=== PATIENT | male | born 1950 | race Caucasian/White ===

== ENCOUNTER 2021-06-15 18:09 | Emergency (ER) | payer OTHER ==
[2021-06-15 21:18] LABS: Urine Blood 3+ (Negative); Urine Glucose Negative (Negative); Urine Protein 3+ (Negative); Urine Specific Gravity 1.025 (1.005-1.030)
[2021-06-15 21:20] LABS: Absolute Lymphocytes (CBC) 0.8 K/uL (0.7-4.9); Hematocrit 37.2 % (39.6-49.0); Lymphocytes % 4.7 % (15.3-44.8); MPV 7.3 fL (7.6-11.3); RBC Red Blood Cell Count 4.25 M/uL (4.33-5.43)
[2021-06-15 21:37] LABS: Albumin 3.8 g/dL (3.4-5.0); Bilirubin Direct 0.1 mg/dL (0-0.2); Bilirubin Total 0.4 mg/dL (0.2-1.0); Potassium 4.8 mmol/L (3.5-5.1); Protein, Total 7.6 g/dL (6.4-8.2)
[2021-06-15 21:41] LABS: Urine Bacteria >50 /HPF (NONE SEEN); Urine Mucus 2+ /HPF (NONE SEEN); Urine RBC TNTC /HPF (NONE SEEN)
[2021-06-15 22:05] LABS: Blood Morphology Comment NOT SEEN (NOT SEEN); Platelet Estimate ADEQ; Platelets, Giant FEW; White Blood Cell Scan OK (OK)
[2021-06-15] MEDS ORDERED: CEFTRIAXONE 1000 MG/VIAL ONE (23:53)
[2021-06-15] MEDS ORDERED: NA CHLORIDE 0.9% 100 ML ONE (23:53)
--- NOTE | 2021-06-16 00:11 | EDPHYS ---
Physician Documentation [facility] Name: Adam Colon Age: 70 yrs Sex: Male : 1950 Arrival Date: 06/15/2021 Time: 18:10 Bed 10 Private MD: ED Physician Bon Pathak HPI: 06/15 20:41 This 70 yrs old Male presents to ER via Ambulatory with complaints of Penile Bleeding - jmm With Pain. 20:41 The patient presents with urinary symptoms, dysuria. Onset: The symptoms/episode jmm began/occurred gradually. Modifying factors: The symptoms are alleviated by nothing, the symptoms are aggravated by nothing. Associated signs and symptoms: Pertinent positives: dysuria, hematuria, Pertinent negatives: abdominal pain. This is a 70-year-old male with history of BPH, hyperlipidemia the presents emerged department with complaints of passing blood clots in his urine and painful urination beginning approximately 2 days ago. Patient also complains of rectal pain and perineal pain. Patient recently had a sure procedure and the urinary catheter. Patient did have some concerns of retained catheter. Denies fever or vomiting. Patient approximately 5 weeks ago finished a course of oral antibiotics for epididymitis.. Historical: - Allergies: 18:40 No Known Allergies; ap3 - PMHx: 18:40 BPH; Hypercholesterolemia; ap3 - PSHx: 18:40 resume procedure; ap3 - Immunization history:: Client reports receiving the 2nd dose of the Covid vaccine, Flu vaccine is not up to date. - Social history:: Smoking status: Patient denies any tobacco usage or history of. ROS: 20:41 Constitutional: Negative for fever, chills, and weight loss, Cardiovascular: Negative jmm for chest pain, palpitations, and edema, Respiratory: Negative for shortness of breath, cough, wheezing, and pleuritic chest pain. 20:41 : Positive for hematuria, difficulty urinating. 20:41 All other systems are negative. Exam: 20:41 Constitutional: This is a well developed, well nourished patient who is awake, alert, jmm and in no acute distress. Head/Face: atraumatic. Eyes: EOMI, no conjunctival erythema appreciated ENT: Moist Mucus Membranes Neck: Trachea midline, Supple Chest/axilla: Normal chest wall appearance and motion. Cardiovascular: Regular rate and rhythm. No edema appreciated Respiratory: Normal respirations, no respiratory distress appreciated Abdomen/GI: Non distended, soft Back: Normal ROM Skin: General appearance color normal MS/ Extremity: Moves all extremities, no obvious deformities appreciated, no edema noted to the lower extremities Neuro: Awake and alert Psych: Behavior is normal, Mood is normal, Patient is cooperative and pleasant Vital Signs: 18:34 BP 161 / 90; Pulse 90; Resp 17; Temp 98.8; Pulse Ox 100% ; ap3 22:21 Temp 97.1; lr4 06/16 00:31 BP 137 / 82; Pulse 81; Resp 16; Pulse Ox 99% on R/A; Pain 0/10; sv1 MDM: 06/15 20:41 Patient medically screened. [facility] 06/16 00:09 Data reviewed: vital signs, nurses notes. Counseling: I had a detailed discussion with [facility] the patient and/or guardian regarding: the historical points, exam findings, and any diagnostic results supporting the discharge/admit diagnosis, lab results, radiology results, the need for outpatient follow up, to return to the emergency department if symptoms worsen or persist or if there are any questions or concerns that arise at home. ED course: Patient is alert and nontoxic in appearance in the ED. Labs concerning for UTI. CT did reveal most likely cystitis patient advised to follow-up with his urologist otherwise given strict return precautions. Patient understood agrees plan of care.. 06/15 20:55 Order name: Basic Metabolic Panel [facility] 06/15 20:55 Order name: CBC with Diff [facility] 06/15 20:55 Order name: Hepatic Function [facility] 06/15 20:55 Order name: Lipase; Complete Time: 21:46 [facility] 06/15 20:55 Order name: Urine Microscopic Only; Complete Time: 21:46 [facility] 06/15 20:55 Order name: Urine Culture [facility] 06/15 20:56 Order name: Basic Metabolic Panel; Complete Time: 21:46 [facility] 06/15 20:56 Order name: CBC with Automated Diff [facility] 06/15 20:56 Order name: Liver (Hepatic) Function; Complete Time: 21:46 [facility] 06/15 21:17 Order name: Urine Dipstick-Ancillary; Complete Time: 21:46 [facility] 06/15 22:02 Order name: CT Abd/Pelvis - IV Contrast Only [facility] 06/15 22:05 Order name: CBC Smear Scan [facility] 06/15 20:55 Order name: IV Saline Lock; Complete Time: 21:19 [facility] 06/15 20:55 Order name: Labs collected and sent; Complete Time: 21:19 [facility] 06/15 20:55 Order name: Urine Dipstick-Ancillary (obtain specimen); Complete Time: 21:18 [facility] Administered Medications: 06/15 23:53 Drug: Rocephin (cefTRIAXone) 2 grams Route: IV; Rate: calculated rate; Site: right lr4 antecubital; 06/16 00:07 Follow up: IV Status: Completed infusion; IV Intake: 50ml st1 00:26 Follow up: Response: No adverse reaction st1 Disposition: 01:02 Co-signature as Attending Physician, Bon Pathak MD. rn Disposition Summary: 06/16/21 00:10 Discharge Ordered Location: Home [facility] Condition: Stable [facility] Diagnosis - UTI/ Urinary tract infection, site not specified [facility] Followup: [facility] - With: Private Physician - When: 2 - 3 days - Reason: Recheck today's complaints, Continuance of care, Re-evaluation by your physician Discharge Instructions: - Discharge Summary Sheet [facility] - Hematuria, Adult [facility] - Urinary Tract Infection, Adult [facility] Forms: - Medication Reconciliation Form [facility] - Thank You Letter [facility] - Antibiotic Education [facility] - Prescription Opioid Use [facility] Prescriptions: - cefpodoxime 200 mg Oral Tablet - take 1 tablet by ORAL route every 12 hours for 10 days with food; 20 tablet; [facility] Refills: 0, Product Selection Permitted Signatures: Dispatcher [employer] [facility] Howard Mcbride PA PA [facility] Bon Pathak MD MD rn Prokisch, Amanda RN RN ap3 Myriam Bush RN RN lr4 Geri Hurst RN st1 Corrections: (The following items were deleted from the chart) 06/15 21:20 20:56 Abdomen Pelvis W Con+CT.RAD.BRZ ordered. [facility]
--- NOTE | 2021-06-16 00:11 | ER ---
Nurse's Notes [facility] Name: Adam Colon Age: 70 yrs Sex: Male : 1950 Arrival Date: 06/15/2021 Time: 18:10 Bed 10 Private MD: Diagnosis: UTI/ Urinary tract infection, site not specified Presentation: 06/15 18:34 Chief complaint: Patient states: he has had a resume procedure approx 6 weeks ago to ap3 improve BPH symptoms. He presents to the ED today complaining of urinating bright red blood with large clots. Patient reports a burning sensation prior to and during urination with pain radiating down into his scrotal area. Coronavirus screen: At this time, the client does not indicate any symptoms associated with coronavirus-19. Ebola Screen: No symptoms or risks identified at this time. Initial Sepsis Screen: Does the patient meet any 2 criteria? No. Patient's initial sepsis screen is negative. Does the patient have a suspected source of infection? No. Patient's initial sepsis screen is negative. Risk Assessment: Do you want to hurt yourself or someone else? Patient reports no desire to harm self or others. Onset of symptoms was June 15, 2021. 18:34 Method Of Arrival: Ambulatory ap3 18:34 Acuity: RIKKI 3 ap3 Triage Assessment: 18:36 General: Appears in no apparent distress. Behavior is calm, cooperative, appropriate ap3 for age. Pain: Complains of pain in head of penis, shaft of penis, left testicle, perineum and scrotum Quality of pain is described as burning, pressure, throbbing, Pain began suddenly. Neuro: Level of Consciousness is awake, alert, obeys commands, Oriented to person, place, time, situation, Appropriate for age Moves all extremities. Gait is steady, Speech is normal. Respiratory: Airway is patent Respiratory effort is even, unlabored, Respiratory pattern is regular, symmetrical. : Reports burning with urination, discharge, bloody, pain urgency, urinary frequency. Historical: - Allergies: 18:40 No Known Allergies; ap3 - PMHx: 18:40 BPH; Hypercholesterolemia; ap3 - PSHx: 18:40 resume procedure; ap3 - Immunization history:: Client reports receiving the 2nd dose of the Covid vaccine, Flu vaccine is not up to date. - Social history:: Smoking status: Patient denies any tobacco usage or history of. Screenin:38 Abuse screen: Denies threats or abuse. Nutritional screening: No deficits noted. ap3 Tuberculosis screening: No symptoms or risk factors identified. 21:19 Fall Risk None identified. lr4 Vital Signs: 18:34 BP 161 / 90; Pulse 90; Resp 17; Temp 98.8; Pulse Ox 100% ; ap3 22:21 Temp 97.1; lr4 03 00:31 BP 137 / 82; Pulse 81; Resp 16; Pulse Ox 99% on R/A; Pain 0/10; sv1 ED Course: 06/15 18:10 Patient arrived in ED. ds1 18:36 Triage completed. ap3 18:38 Arm band placed on right wrist. ap3 18:38 Patient has correct armband on for positive identification. Pulse ox on. NIBP on. ap3 20:12 Howard Mcbride PA is PHCP. jm 20:12 Bon Pathak MD is Attending Physician. [facility] 21:00 Myriam Bush, SHIRA is Primary Nurse. lr4 21:19 Basic Metabolic Panel Sent. lr4 21:19 CBC with Diff Sent. lr4 21:19 Hepatic Function Sent. lr4 21:19 No provider procedures requiring assistance completed. Inserted saline lock: 20 gauge lr4 in right antecubital area, using aseptic technique. 22:40 CT Abd/Pelvis - IV Contrast Only Sent. lr4 22:56 CT Abd/Pelvis - IV Contrast Only In Process Unspecified. EDMS 23:54 Report given to Geri moses. lr4 06/16 00:31 IV discontinued, intact, bleeding controlled, No redness/swelling at site. Pressure sv1 dressing applied. Administered Medications: 06/15 23:53 Drug: Rocephin (cefTRIAXone) 2 grams Route: IV; Rate: calculated rate; Site: right lr4 antecubital; 06/16 00:07 Follow up: IV Status: Completed infusion; IV Intake: 50ml st1 00:26 Follow up: Response: No adverse reaction st1 Intake: 00:07 IV: 50ml; Total: 50ml. st1 Outcome: 06/15 21:19 Condition: stable lr4 06/16 00:10 Discharge ordered by . [facility] 00:32 Discharged to home ambulatory. sv1 00:32 Discharge instructions given to patient. 00:34 Patient left the ED. sv1 Addendum: 06/20/2021 12:19 Addendum: Culture Results: Positive urine culture. Bacteria is resistant to, has a a5 intermediate sensitivity, or is not tested against prescribed antibiotics. Report given to [facility] for further evaluation and then to manager hydraulic for follow up with patient. Phone call Attempt #1 called to check on patient, left voicemail. Signatures: Dispatcher [employer] [facility] Howard Mcbride PA PA jmm Sanford, Demi ds1 Pushpa Asher, RN RN aa5 Anaya Stone RN RN ap3 Stefan Richardson RN RN sv1 Geri Hurst, RN RN st1 Myriam Bush RN RN lr4
[2021-06-16 02:49] VITALS: TEMP 97.1
[2021-06-16 02:51] VITALS: BP 137/82; O2SAT 99
--- NOTE | 2021-06-16 21:30 | RAD REPORT ---
EXAM DESCRIPTION: Abdomen Pelvis W Contrast RadLex: CT ABDOMEN PELVIS WITH IV CONTRAST CLINICAL HISTORY: HEMATURIA - lower abdominal pain, dysuria. COMPARISON: None. TECHNIQUE: CT of the abdomen and pelvis was performed following intravenous administration of iodina steve contrast. Arterial phase images through the abdomen, and portal venous phase images through the a bdomen and pelvis were obtained. Oral contrast was not administered. Axial, coronal, and sagittal sof t tissue window reconstructions were created and sent to PACS. This exam was performed according to our departmental dose-optimization program, which includes autom ated exposure control, adjustment of the mA and/or kV according to patient size and/or use of iterati ve reconstruction technique. FINDINGS: Thoracic: No significant abnormality. Hepatobiliary: No concerning hepatic lesion identified. The portal veins are patent. The gallbladder is unremarkable. No biliary ductal dilatation. Pancreas: Unremarkable. Spleen: Unremarkable. Gastrointestinal: Tiny sliding-type hiatal hernia. No evidence of bowel obstruction or perienteric in flammation. The appendix is normal. Adrenals: No abnormality identified in either adrenal gland. Renal: Inferior right renal 2.6 cm hypodensity measuring 19 Hounsfield units. Left simple renal sinus cysts measures 2.5 cm and 1.9 cm. No concerning parenchymal abnormality in either kidney. No hydrone phrosis or urolithiasis. Bladder/Reproductive: Moderate diffuse bladder wall thickening with mild surrounding fat stranding. M oderate prostatomegaly. Nonspecific mild low-density changes in the prostate gland. No discrete rim-e nhancing fluid collection identified to suggest an abscess. Vascular/Lymphatics: Mild retroperitoneal lymphadenopathy. Mild calcific atherosclerosis. Abdominal a caesar is normal in caliber. Musculoskeletal: No concerning osseous lesion identified. Chronic pars interarticularis defect on the right at L5, with grade 1 anterolisthesis at L5-S1, and moderate disc degeneration at this level. Cy stic change and mild sclerosis along the right sacroiliac joint could be sequela of prior right-sided sacroiliitis. Fluid / peritoneum: No significant free fluid. No free intraperitoneal air identified. IMPRESSION 1. Moderate diffuse bladder wall thickening with mild surrounding fat stranding, sugges tive of cystitis. 2. Moderate prostatomegaly, with mild low-density changes, favored to represent cystic change relat ed to BPH, but prostatitis is in the differential. 3. Inferior right renal 2.6 cm hypodensity, possibly a minimally complex cyst. Recommend further ev aluation with nonemergent renal ultrasound. Electronically signed by: Eli Tineo MD 06/15/2021 11:22 PM [employer] SALES REPRESENTATIVE Due to temporary technical issues with the PACS/Fluency reporting system, reports are being signed by the in house radiologists without review as a courtesy to insure prompt reporting. The interpreting radiologist is fully responsible for the content of the report.
== END 2021-06-16 00:34 | disposition home or self-care (01) ==
LOC: ER 18:09
DX: N39.0 Urinary tract infection, site not specified (principal)
CPT/HCPCS: 87088; 85025; 87086; 80048; 36415; 80076; 87077; 87186; 83690; 74177; 96374; 99284; Q9967; 81003; 81015